=== PATIENT | male | born 1985 | race Caucasian/White ===

== ENCOUNTER 2017-11-25 16:14 | Emergency (ER) | payer SELFPAY ==
[2017-11-25 16:49] VITALS: BP 128/72
--- NOTE | 2017-11-25 17:36 | UC ---
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 Pain worse w/ lifting and bending movements. States 2 days ago he coughed while he was bent forward and felt sudden back pain/tightness. Pain worse in morning. Taking tylenol 1000mg/ ibuprofen 800mg prn w/ temporary pain relief- last taken 1400. Also doing heating pad applic w/ some pain relief. " -pain immediately dropped him to his knees. -Denies any radiation going down his legs. No weakness number tingling. Pain is localized to the left low back just above his buttocks. No pain into the buttocks. - History of Current Complaint Chief Complaint: UCBackPain Stated Complaint: BACK PAIN Time Seen by Provider: 11/25/17 17:23 Pain Intensity: 3 - Allergies/Home Medications Allergies/Adverse Reactions: Allergies Allergy/AdvReac Type Severity Reaction Status Date / Time No Known Allergies Allergy Verified 11/25/17 16:43 PMH/Surg Hx/FS Hx/Imm Hx Previously Healthy: Yes - Surgical History Surgical History: Yes Surgery Procedure, Year, and Place: LITHOTRIPSY. Lasik sx x2 as child - Family History Known Family History: Positive: Hypertension - Social History Alcohol Use: Occasionally Substance Use Type: Marijuana Smoking Status (MU): Heavy Every Day Tobacco Smoker Type: Cigarettes Amount Used/How Often: 1/2 PPD Length of Time of Smoking/Using Tobacco: 14 years (since 16 y/o) - Immunization History Most Recent Tetanus Shot: UTD Review of Systems Constitutional: Negative Skin: Negative Eyes: Negative ENT: Negative Respiratory: Negative Cardiovascular: Negative Gastrointestinal: Negative Genitourinary: Negative Motor: Negative Neurovascular: Negative Musculoskeletal: Other: - left LBP Neurological: Negative Psychological: Negative Is Patient Immunocompromised?: No All Other Systems Reviewed And Are Negative: Yes Physical Exam Triage Information Reviewed: Yes Appearance: Well-Appearing, No Pain Distress - mild, Well-Nourished Vital Signs: Initial Vital Signs Temp 98.1 F 11/25/17 16:43 Pulse 63 11/25/17 16:43 Resp 15 11/25/17 16:43 BP 128/72 11/25/17 16:43 Pulse Ox 99 11/25/17 16:43 Vital Signs Reviewed: Yes Eye Exam: Normal ENT Exam: Normal Neck exam: Normal Respiratory Exam: Normal Respiratory: Positive: Lungs clear Cardiovascular: Positive: RRR Musculoskeletal: Positive: Strength Intact, ROM Intact, Other: - left low back muscle spasm, lateral. + pain to left low back w/ SLR b/ilaterally. + 2 patellar b/l and equal. Neurological Exam: Normal Psychological Exam: Normal Skin Exam: Normal Back Pain Course/Dx - Course Course Of Treatment: -xrays not indicated at this time w/o any red flag signs or trauma. denies b/b loss, no saddle anesthesia. -shown gentle extension exercise. -conty w/ current management. -felxiril prn. not w/ driving or using machinery - Differential Dx/Diagnosis Differential Diagnosis/HQI/PQRI: Herniated Disc, Strain, Sprain Provider Diagnoses: left LBP Discharge - Sign-Out/Discharge Documenting (check all that apply): Patient Departure - Discharge Plan Condition: Stable Disposition: HOME Prescriptions: Cyclobenzaprine TAB* [Flexeril 10 MG TAB*] 10 mg PO BID PRN 5 Days #10 tab PRN Reason: Pain Patient Education Materials: Muscle Spasm (ED) Referrals: No Primary Care Phys,NOPCP [Primary Care Provider] - Additional Instructions: Follow up with your PCP in [place] in 1 week. Xrays would likely be considered if your symptoms increase or persist. No driving or operating machinery. - Billing Disposition and Condition Condition: STABLE Disposition: Home
== END 2017-11-25 17:53 | disposition home or self-care (01) ==
LOC: UCCORT 16:14
DX: M54.5 Low back pain (principal); F17.210 Nicotine dependence, cigarettes, uncomplicated
CPT/HCPCS: 99202; G0463

== ENCOUNTER 2018-04-08 15:10 | Emergency (ER) | payer OTHER ==
[2018-04-08 15:24] VITALS: BP 120/62
[2018-04-08] MEDS ORDERED: Lidocaine 2% W/EPI 1:100,000* 20 ML MDV INJ ONE (15:30)
--- NOTE | 2018-04-08 15:53 | UC ---
Laceration HPI - HPI Summary HPI Summary: Cut his left hand on a kitchen knife about 30 minutes ago. - History Of Current Complaint Chief Complaint: UCLaceration Stated Complaint: LACERATION LEFT HAND Time Seen by Provider: 04/08/18 15:25 Hx Obtained From: Patient Laceration Location: Hand Mechanism Of Injury: Sharp Trauma Onset/Duration: Sudden Onset, Lasting Minutes Severity: Mild Pain Intensity: 1 Aggravating Factors: Movement Hands: 1 - 2 cm curvilinear laceration Related History: Occupational Injury, Dominant Hand Right - Allergies/Home Medications Allergies/Adverse Reactions: Allergies Allergy/AdvReac Type Severity Reaction Status Date / Time No Known Allergies Allergy Verified 04/08/18 15:20 Home Medications: Home Medications NK [No Home Medications Reported] 04/08/18 [History Confirmed 04/08/18] PMH/Surg Hx/FS Hx/Imm Hx Respiratory History: Asthma GI/ History: Kidney Stones - Surgical History Surgical History: Yes Surgery Procedure, Year, and Place: LITHOTRIPSY. "LAZY EYE SURGERY" x2 as child - Family History Known Family History: Positive: Cardiac Disease, Hypertension Negative: Diabetes - Social History Occupation: Employed Full-time Lives: With Family Alcohol Use: Occasionally Substance Use Type: Marijuana Substance Use Comment - Amount & Last Used: WEEKLY; 3 DAYS AGO LAST USED Smoking Status (MU): Heavy Every Day Tobacco Smoker Type: Cigarettes Amount Used/How Often: 1/2 PPD Length of Time of Smoking/Using Tobacco: 14 years (since 16 y/o) - Immunization History Most Recent Tetanus Shot: 2013 Review of Systems All Other Systems Reviewed And Are Negative: Yes Skin: Positive: Other - laceration left palm Is Patient Immunocompromised?: No Physical Exam Triage Information Reviewed: Yes Appearance: Well-Appearing, No Pain Distress, Well-Nourished Vital Signs: Initial Vital Signs Temp 97.8 F 04/08/18 15:20 Pulse 80 04/08/18 15:20 Resp 16 04/08/18 15:20 BP 120/62 04/08/18 15:20 Pulse Ox 100 04/08/18 15:20 Vital Signs Reviewed: Yes Eyes: Positive: Other: - left esotropia Neck exam: Normal Respiratory Exam: Normal Cardiovascular Exam: Normal Musculoskeletal Exam: Normal Neurological Exam: Normal Psychological Exam: Normal Skin Exam: Normal Laceration Repair - Laceration Repair 1 Description: Linear Laceration Size After Repair: Length (cm) - 2.1 Modified For Repair: No Type Injection: Local Anesthesia Used: 2.0% Lido Additive Used (in ml): Epi Cleansing Completed Via Routine Prep: Yes Irrigation With Pressure Irrigation Device: Yes Closure Material: Sutures Closure Method: Single Layer Suture Of: Skin Suture Type: Nylon - #8, 4-0 nylon, running suture Laceration Course/Dx - Differential Dx - Laceration/Wound Differental Diagnoses: Abrasion, Abscess, Avulsion, Laceration - Diagnosis Provider Diagnosis: Laceration of left hand Discharge - Sign-Out/Discharge Documenting (check all that apply): Patient Departure All imaging exams completed and their final reports reviewed: No Studies - Discharge Plan Condition: Stable Disposition: HOME Patient Education Materials: Care For Your Stitches (ED), Laceration (ED) Referrals: No Primary Care Phys,NOPCP [Primary Care Provider] - (10- days for suture removal.) Additional Instructions: Return 10 days for suture removal - Billing Disposition and Condition Condition: STABLE Disposition: Home
== END 2018-04-08 16:12 | disposition home or self-care (01) ==
LOC: UCCORT 15:10
DX: S61.412A Laceration without foreign body of left hand, initial encounter (principal); W26.0XXA Contact with knife, initial encounter; Y92.9 Unspecified place or not applicable; F17.210 Nicotine dependence, cigarettes, uncomplicated
CPT/HCPCS: 12001; 99211; G0463

== ENCOUNTER 2018-04-20 16:55 | Emergency (ER) | payer OTHER ==
[2018-04-20 17:15] VITALS: BP 131/66
--- NOTE | 2018-04-20 17:48 | UC ---
- Progress Note Progress Note: 04/08/18 Had sutures placed. Discharge - Discharge Plan Referrals: No Primary Care Phys,NOPCP [Primary Care Provider] -
== END 2018-04-20 18:11 | disposition home or self-care (01) ==
LOC: UCCORT 16:55
DX: T14.8XXD Other injury of unspecified body region, subsequent encounter (principal); X58.XXXD Exposure to other specified factors, subsequent encounter

== ENCOUNTER 2018-07-05 09:51 | Emergency (ER) | payer SELFPAY ==
[2018-07-05 10:51] VITALS: BP 126/72
--- NOTE | 2018-07-05 11:05 | UC ---
Nausea/Vomiting/Diarrhea HPI - HPI Summary HPI Summary: 3 days of watery diarrhea episodes occurring every hour. Patient states he is sleeping through the night but then in the morning symptoms begin again. Yesterday developed nausea and vomiting. Has vomited 4 times yesterday and twice this morning. Has had chills and sweats. Is drinking water and keeping crackers down. No cough or congestion. No documented fever. No recent antibiotics, travel or unusual foods. - History of Current Complaint Chief Complaint: UCGI Stated Complaint: FLU SYMP Time Seen by Provider: 07/05/18 10:56 Hx Obtained From: Patient Onset/Duration: Gradual Onset, Lasting Days, Still Present Severity Initially: Moderate Severity Currently: Moderate Pain Intensity: 4 Pain Scale Used: 0-10 Numeric Location: Diffuse Character: Cramping Aggravating Factor(s): Nothing Alleviating Factor(s): Nothing Nausea/Vomiting Presence: Nauseated, Vomiting Nausea/Vomiting Duration: 24-36 hours Vomiting Characteristics: Bilious Diarrhea Presence: Yes Diarrhea Frequency: Every 1-2 hours Diarrhea Duration: 2-3 days Diarrhea Characteristics: Watery - Allergies/Home Medications Allergies/Adverse Reactions: Allergies Allergy/AdvReac Type Severity Reaction Status Date / Time No Known Allergies Allergy Verified 07/05/18 10:45 Home Medications: Home Medications Dextromethorphan Hb/Doxylamine [Night Time Cough Liquid] 1 dose PO ONCE [History Confirmed 07/05/18] Ibuprofen TAB* [Advil TAB*] 600 mg PO Q6H PRN 07/05/18 [History Confirmed ] PMH/Surg Hx/FS Hx/Imm Hx Respiratory History: Asthma - Surgical History Surgical History: Yes Surgery Procedure, Year, and Place: LITHOTRIPSY. "LAZY EYE SURGERY" x2 as child - Family History Known Family History: Positive: Cardiac Disease, Hypertension Negative: Diabetes - Social History Alcohol Use: Occasionally Substance Use Type: Marijuana Substance Use Comment - Amount & Last Used: occasional Smoking Status (MU): Heavy Every Day Tobacco Smoker Type: Cigarettes Amount Used/How Often: 1/2 PPD Length of Time of Smoking/Using Tobacco: 14 years (since 16 y/o) - Immunization History Most Recent Tetanus Shot: 2013 Review of Systems All Other Systems Reviewed And Are Negative: Yes Constitutional: Positive: Chills Respiratory: Positive: Negative Cardiovascular: Positive: Negative Gastrointestinal: Positive: Abdominal Pain, Vomiting, Diarrhea, Nausea Genitourinary: Positive: Negative Physical Exam Triage Information Reviewed: Yes Appearance: Well-Appearing, No Pain Distress, Well-Nourished Vital Signs: Initial Vital Signs Temp 97 F 07/05/18 10:46 Pulse 75 07/05/18 10:46 Resp 16 07/05/18 10:46 BP 126/72 07/05/18 10:46 Pulse Ox 100 07/05/18 10:46 Vital Signs Reviewed: Yes Eyes: Positive: Conjunctiva Clear ENT: Positive: Hearing grossly normal Neck: Positive: Supple, Nontender, No Lymphadenopathy Respiratory Exam: Normal Cardiovascular Exam: Normal Abdomen Description: Positive: Soft, Other: - mild diffuse tenderness. Negative : CVA Tenderness (R), CVA Tenderness (L), Distended, Guarding Bowel Sounds: Positive: Present Musculoskeletal: Positive: No Edema Neurological: Positive: Alert Psychological: Positive: Age Appropriate Behavior Skin: Negative: Rashes Naus/Vom/Diarrhea Course/Dx - Differential Dx/Diagnosis Provider Diagnosis: Acute gastroenteritis Condition At Discharge: Stable Discharge - Sign-Out/Discharge Documenting (check all that apply): Patient Departure All imaging exams completed and their final reports reviewed: No Studies - Discharge Plan Condition: Stable Disposition: HOME Prescriptions: Ondansetron ODT TAB* [Zofran Odt TAB*] 4 mg PO Q6H PRN #20 tab.odt PRN Reason: Nausea/Vomiting Patient Education Materials: Gastroenteritis (ED) Forms: *Work Release Referrals: [facility] [Outside] - If Needed Additional Instructions: YOUR SYMPTOMS ARE CONSISTENT WITH A VIRAL GASTROENTERITIS AND SHOULD IMPROVE OVER THE NEXT FEW DAYS. GIVEN THAT YOUR DIARRHEA HAS NOT DECREASED IN FREQUENCY SINCE ONSET 3 DAYS AGO WILL SEND HOME WITH A STOOL KIT. SHOULD YOUR SYMPTOMS NOT IMPROVE OVER THE NEXT SEVERAL DAYS GO AHEAD AND BRING BACK A SPECIMEN FOR TESTING. ZOFRAN FOR NAUSEA. GO TO THE ER WITHOUT FAIL IF YOU DEVELOP WORSENING ABDOMINAL PAIN, BLOOD IN THE VOMIT OR STOOL, FEVER OR ANY OTHER CONCERNING SYMPTOMS. - Billing Disposition and Condition Condition: STABLE Disposition: Home
== END 2018-07-05 11:21 | disposition home or self-care (01) ==
LOC: UCCORT 09:51
DX: K52.9 Noninfective gastroenteritis and colitis, unspecified (principal); J45.909 Unspecified asthma, uncomplicated; F17.210 Nicotine dependence, cigarettes, uncomplicated
CPT/HCPCS: 99212; G0463